=== PATIENT | female | born 1955 | race Caucasian/White ===

== ENCOUNTER 2023-02-17 16:02 | Inpatient (IN) | payer MEDICARE, OTHER ==
[2023-02-17 16:13] VITALS: BMI 34.5
[2023-02-17] MEDS ORDERED: ACETAMINOPHEN 1000 MG/100 ML BAG IVPB ONE (17:32)
[2023-02-17] MEDS ORDERED: SODIUM CHLORIDE 1,000 ML IV STA (17:32)
[2023-02-17] MEDS ORDERED: ACETAMINOPHEN INJECTION 100 ML IVPB ONE (17:38)
[2023-02-17 18:08] LABS: BASO % 0.8 % (0-2.0); EOS % 2.4 % (0-4.5); HEMATOCRIT 39.1 % (32.4-45.2); HEMOGLOBIN 13.6 GM/dL (10.7-15.3); LYMPH % 10.2 % (8-40); MCH 30.2 pg (25.7-33.7); MCHC 34.9 g/dl (32.0-36.0); MEAN CELL VOLUME 86.6 fl (80-96); MEAN PLT VOLUME 7.9 fl (7.5-11.1); MONO % 8.5 % (3.8-10.2); NEUT % 78.1 % (42.8-82.8); PLATELET COUNT 193 10^3/uL (134-434); RBC 4.51 M/mm3 (3.60-5.2); RDW 13.3 % (11.6-15.6); WHITE BLOOD COUNT 12.8 K/mm3 (4.0-10.0)
[2023-02-17 18:35] LABS: CHLORIDE 93 mmol/L (98-107); POTASSIUM 3.5 mmol/L (3.5-5.1); SODIUM 134 mmol/L (136-145)
[2023-02-17 18:37] LABS: ALBUMIN 2.7 g/dl (3.4-5.0); ANION GAP 14 MMOL/L (8-16); CALCIUM 7.9 mg/dL (8.5-10.1); CO2 28 mmol/L (21-32); GLUCOSE,RANDOM 122 mg/dL (74-106); MAGNESIUM 4.1 mg/dL (1.8-2.4)
[2023-02-17 18:40] LABS: SGOT/AST 840 U/L (15-37); SGPT/ALT 622 U/L (13-61)
[2023-02-17 18:42] LABS: TOT PROT 6.1 g/dl (6.4-8.2)
[2023-02-17 18:43] LABS: ALK PHOS 111 U/L (45-117)
[2023-02-17 18:47] LABS: BLOOD UREA NITROGEN 134.3 mg/dL (7-18); CREATININE 11.5 mg/dL (0.55-1.3)
[2023-02-17] MEDS ORDERED: SODIUM CHLORIDE 0.9% 500 ML INFUS.BAG IV ONE (18:57)
[2023-02-17 21:34] LABS: VENOUS BASE EXCESS -5.4 mmol/L (-2-2); VENOUS O2 SATURATION 46.1 % (70-80); VENOUS PCO2 41.6 mmHg (38-52); VENOUS PH 7.311 (7.310-7.410)
[2023-02-17 22:35] LABS: CHLORIDE 100 mmol/L (98-107); POTASSIUM 3.3 mmol/L (3.5-5.1); SODIUM 137 mmol/L (136-145)
[2023-02-17 22:36] LABS: CALCIUM 7.1 mg/dL (8.5-10.1)
[2023-02-17 22:37] LABS: ANION GAP 15 MMOL/L (8-16); CO2 22 mmol/L (21-32); GLUCOSE,RANDOM 102 mg/dL (74-106)
[2023-02-17 22:41] LABS: BLOOD UREA NITROGEN 122.2 mg/dL (7-18); CREATININE 10.3 mg/dL (0.55-1.3)
[2023-02-18] MEDS: SODIUM CHLORIDE 0.45% 1,000 ML IV SCH ×2 (00:48→12:36)
[2023-02-18 02:06] LABS: EPI CELLS >36 /uL (0-25.1); HYALINE CASTS 2 /uL (0-3.1); URINE APPEARANCE CLOUDY; URINE BACTERIA 766 /uL (0-1359); URINE BILIRUBIN NEGATIVE (NEGATIVE); URINE COLOR YELLOW; URINE GLUCOSE (UA) NEGATIVE (NEGATIVE); URINE KETONE NEGATIVE (NEGATIVE); URINE LEUK ESTERASE 3+ (NEGATIVE); URINE NITRITE NEGATIVE (NEGATIVE); URINE PROTEIN 2+ (NEGATIVE); URINE RBC 18 /uL (0-23.9); URINE UROBILINOGEN 0.2 mg/dL (0.2-1.0); URINE WBC 911 /uL (0-25.8)
[2023-02-18 06:28] LABS: YEAST NONE SEEN (NEGATIVE)
[2023-02-18] MEDS: HEPARIN NA (PORCINE) 5,000 UNITS/ML 1ML VIAL SQ SCH ×2 (10:23→21:09)
[2023-02-18 10:28] LABS: BASO % 0.5 % (0-2.0); EOS % 2.1 % (0-4.5); HEMATOCRIT 37.4 % (32.4-45.2); HEMOGLOBIN 12.8 GM/dL (10.7-15.3); LYMPH % 9.1 % (8-40); MCH 30.2 pg (25.7-33.7); MCHC 34.1 g/dl (32.0-36.0); MEAN CELL VOLUME 88.6 fl (80-96); MEAN PLT VOLUME 8.5 fl (7.5-11.1); MONO % 5.2 % (3.8-10.2); NEUT % 83.1 % (42.8-82.8); PLATELET COUNT 185 10^3/uL (134-434); RBC 4.22 M/mm3 (3.60-5.2); RDW 13.1 % (11.6-15.6); WHITE BLOOD COUNT 13.1 K/mm3 (4.0-10.0)
[2023-02-18 10:36] LABS: CHLORIDE 99 mmol/L (98-107); POTASSIUM 3.4 mmol/L (3.5-5.1); SODIUM 136 mmol/L (136-145)
[2023-02-18 10:42] LABS: CALCIUM 7.7 mg/dL (8.5-10.1)
[2023-02-18 10:43] LABS: ALBUMIN 2.2 g/dl (3.4-5.0); ANION GAP 17 MMOL/L (8-16); CO2 20 mmol/L (21-32); GLUCOSE,RANDOM 89 mg/dL (74-106)
[2023-02-18 10:46] LABS: SGOT/AST 616 U/L (15-37); SGPT/ALT 539 U/L (13-61)
[2023-02-18 10:48] LABS: ALK PHOS 93 U/L (45-117); BILIRUBIN,TOTAL 0.8 mg/dL (0.2-1); TOT PROT 4.9 g/dl (6.4-8.2)
[2023-02-18 11:29] LABS: BLOOD UREA NITROGEN 130.2 mg/dL (7-18)
[2023-02-18] MEDS ORDERED: SODIUM CHLORIDE 1,000 ML IV SCH (13:45)
[2023-02-18] MEDS ORDERED: POTASSIUM CHLORIDE ORAL LIQUID 20 MEQ/15 ML PO ONE (14:43)
[2023-02-18] MEDS: SODIUM CHLORIDE 1,000 ML IV SCH ×2 (15:58→23:05)
[2023-02-19] MEDS: SODIUM CHLORIDE 1,000 ML IV SCH ×3 (05:38→21:00)
[2023-02-19] MEDS: HEPARIN NA (PORCINE) 5,000 UNITS/ML 1ML VIAL SQ SCH ×2 (09:35→21:48)
[2023-02-19 10:02] LABS: INR 1.15 (0.83-1.09); PROTHROMBIN TIME (PATIENT) 13.3 SEC (9.7-13.0)
[2023-02-19 10:07] LABS: BASO % 0.4 % (0-2.0); EOS % 3.3 % (0-4.5); HEMATOCRIT 35.1 % (32.4-45.2); HEMOGLOBIN 12.4 GM/dL (10.7-15.3); MCH 30.7 pg (25.7-33.7); MCHC 35.3 g/dl (32.0-36.0); MEAN PLT VOLUME 7.7 fl (7.5-11.1); MONO % 7.2 % (3.8-10.2); NEUT % 80.1 % (42.8-82.8); PLATELET COUNT 172 10^3/uL (134-434); RBC 4.04 M/mm3 (3.60-5.2); RDW 13.2 % (11.6-15.6); WHITE BLOOD COUNT 11.5 K/mm3 (4.0-10.0)
[2023-02-19 10:18] LABS: CHLORIDE 103 mmol/L (98-107); POTASSIUM 3.8 mmol/L (3.5-5.1)
[2023-02-19 10:19] LABS: ALBUMIN 1.8 g/dl (3.4-5.0)
[2023-02-19 10:21] LABS: ALBUMIN 1.8 g/dl (3.4-5.0); BILIRUBIN,DIRECT 0.1 mg/dL (0.0-0.2); CALCIUM 7.6 mg/dL (8.5-10.1); CO2 18 mmol/L (21-32); GLUCOSE,RANDOM 79 mg/dL (74-106)
[2023-02-19 10:24] LABS: BILIRUBIN,TOTAL 0.8 mg/dL (0.2-1); SGPT/ALT 482 U/L (13-61); TOT PROT 4.6 g/dl (6.4-8.2)
[2023-02-19 10:25] LABS: SGOT/AST 452 U/L (15-37)
[2023-02-19 10:26] LABS: BILIRUBIN,TOTAL 0.8 mg/dL (0.2-1); TOT PROT 4.6 g/dl (6.4-8.2)
[2023-02-19 10:27] LABS: ALK PHOS 95 U/L (45-117); ANION GAP 16 MMOL/L (8-16); BLOOD UREA NITROGEN 127.8 mg/dL (7-18); CREATININE 10.7 mg/dL (0.55-1.3); SODIUM 137 mmol/L (136-145)
[2023-02-19 10:45] LABS: HEPATITIS B SURFACE AG MATERN NON-REACTIVE (NONREACTIVE)
[2023-02-19] MEDS ORDERED: FUROSEMIDE 40 MG/4 ML INJECTABLE VIAL IVPUSH ONE (12:00)
[2023-02-20] MEDS: SODIUM CHLORIDE 1,000 ML IV SCH ×3 (08:00→21:14)
[2023-02-20] MEDS: HEPARIN NA (PORCINE) 5,000 UNITS/ML 1ML VIAL SQ SCH ×2 (09:00→21:15)
[2023-02-20 10:51] LABS: BASO % 0.8 % (0-2.0); EOS % 3.5 % (0-4.5); HEMATOCRIT 33.5 % (32.4-45.2); HEMOGLOBIN 11.8 GM/dL (10.7-15.3); LYMPH % 8.6 % (8-40); MCHC 35.2 g/dl (32.0-36.0); MEAN PLT VOLUME 7.3 fl (7.5-11.1); MONO % 6.5 % (3.8-10.2); NEUT % 80.6 % (42.8-82.8); PLATELET COUNT 171 10^3/uL (134-434); RDW 13.1 % (11.6-15.6); WHITE BLOOD COUNT 10.8 K/mm3 (4.0-10.0)
[2023-02-20 12:00] LABS: ALBUMIN 1.8 g/dl (3.4-5.0); ALK PHOS 91 U/L (45-117); ANION GAP 16 MMOL/L (8-16); BILIRUBIN,TOTAL 0.6 mg/dL (0.2-1); BLOOD UREA NITROGEN 136.8 mg/dL (7-18); CALCIUM 7.9 mg/dL (8.5-10.1); CHLORIDE 102 mmol/L (98-107); CO2 16 mmol/L (21-32); CREATININE 10.9 mg/dL (0.55-1.3); GLUCOSE,RANDOM 157 mg/dL (74-106); POTASSIUM 3.7 mmol/L (3.5-5.1); SGOT/AST 300 U/L (15-37); SGPT/ALT 423 U/L (13-61); SODIUM 135 mmol/L (136-145); TOT PROT 4.5 g/dl (6.4-8.2)
[2023-02-20] MEDS ORDERED: POTASSIUM CHLORIDE ORAL LIQUID 20 MEQ/15 ML PO ONE (15:00)
[2023-02-20] MEDS ORDERED: FUROSEMIDE 40 MG/4 ML INJECTABLE VIAL IVPUSH ONE (15:00)
[2023-02-21] MEDS: SODIUM CHLORIDE 1,000 ML IV SCH ×2 (05:22→15:11)
[2023-02-21] MEDS: HEPARIN NA (PORCINE) 5,000 UNITS/ML 1ML VIAL SQ SCH ×2 (10:29→21:17)
[2023-02-21 10:36] LABS: BASO % 0.8 % (0-2.0); EOS % 5.3 % (0-4.5); HEMATOCRIT 34.7 % (32.4-45.2); LYMPH % 8.4 % (8-40); MCH 30.7 pg (25.7-33.7); MCHC 34.7 g/dl (32.0-36.0); MEAN CELL VOLUME 88.6 fl (80-96); MEAN PLT VOLUME 7.5 fl (7.5-11.1); MONO % 6.4 % (3.8-10.2); NEUT % 79.1 % (42.8-82.8); PLATELET COUNT 179 10^3/uL (134-434); RBC 3.92 M/mm3 (3.60-5.2); RDW 13.3 % (11.6-15.6); WHITE BLOOD COUNT 12.6 K/mm3 (4.0-10.0)
[2023-02-21 10:50] LABS: CHLORIDE 107 mmol/L (98-107); POTASSIUM 4.6 mmol/L (3.5-5.1); SODIUM 137 mmol/L (136-145)
[2023-02-21 10:59] LABS: ALBUMIN 1.8 g/dl (3.4-5.0); ANION GAP 14 MMOL/L (8-16); CO2 16 mmol/L (21-32); GLUCOSE,RANDOM 89 mg/dL (74-106)
[2023-02-21 11:02] LABS: SGOT/AST 259 U/L (15-37); SGPT/ALT 413 U/L (13-61)
[2023-02-21 11:05] LABS: ALK PHOS 91 U/L (45-117); BILIRUBIN,TOTAL 0.6 mg/dL (0.2-1); TOT PROT 4.4 g/dl (6.4-8.2)
[2023-02-21 11:34] LABS: BLOOD UREA NITROGEN 136.3 mg/dL (7-18); CREATININE 10.5 mg/dL (0.55-1.3)
[2023-02-21] MEDS ORDERED: FUROSEMIDE 40 MG/4 ML INJECTABLE VIAL IVPUSH ONE (16:07)
[2023-02-21] MEDS: ONDANSETRON 4 MG/2 ML VIAL IVPUSH PRN (21:17)
[2023-02-22 09:19] LABS: CHLORIDE 108 mmol/L (98-107); POTASSIUM 4.6 mmol/L (3.5-5.1); SODIUM 139 mmol/L (136-145)
[2023-02-22 09:21] LABS: ALBUMIN 1.9 g/dl (3.4-5.0); ANION GAP 16 MMOL/L (8-16); CALCIUM 8.4 mg/dL (8.5-10.1); CO2 15 mmol/L (21-32); GLUCOSE,RANDOM 88 mg/dL (74-106)
[2023-02-22 09:23] LABS: SGOT/AST 210 U/L (15-37); SGPT/ALT 412 U/L (13-61)
[2023-02-22 09:25] LABS: BILIRUBIN,TOTAL 0.9 mg/dL (0.2-1); TOT PROT 4.9 g/dl (6.4-8.2)
[2023-02-22 09:26] LABS: ALK PHOS 95 U/L (45-117)
[2023-02-22 09:43] LABS: BLOOD UREA NITROGEN 138.5 mg/dL (7-18); CREATININE 10.7 mg/dL (0.55-1.3)
[2023-02-22] MEDS: HEPARIN NA (PORCINE) 5,000 UNITS/ML 1ML VIAL SQ SCH ×2 (10:46→21:10)
[2023-02-22] MEDS ORDERED: FUROSEMIDE 40 MG/4 ML INJECTABLE VIAL IVPUSH ONE ×2 (11:30→20:00)
[2023-02-22 13:28] LABS: EPI CELLS 18 /uL (0-25.1); HYALINE CASTS 0 /uL (0-3.1); PH,URINE 6.5 (5.0-8.0); URINE APPEARANCE CLEAR; URINE BACTERIA 1351 /uL (0-1359); URINE BILIRUBIN NEGATIVE (NEGATIVE); URINE COLOR YELLOW; URINE GLUCOSE (UA) NEGATIVE (NEGATIVE); URINE KETONE NEGATIVE (NEGATIVE); URINE LEUK ESTERASE 1+ (NEGATIVE); URINE NITRITE NEGATIVE (NEGATIVE); URINE PROTEIN 1+ (NEGATIVE); URINE RBC 14 /uL (0-23.9); URINE UROBILINOGEN 0.2 mg/dL (0.2-1.0); URINE WBC 146 /uL (0-25.8)
[2023-02-22] MEDS ORDERED: SODIUM CHLORIDE 0.45% 1,000 ML IV SCH (13:45)
[2023-02-22] MEDS: SODIUM BICARBONATE 650 MG TABLET PO SCH ×2 (15:45→21:10)
[2023-02-22 19:07] LABS: ANTIGLOMERULAR BASEMENT MEN.AB <0.2 units (0.0-0.9)
[2023-02-23] MEDS: SODIUM BICARBONATE 650 MG TABLET PO SCH ×3 (05:21→22:05)
[2023-02-23 08:59] LABS: HEMATOCRIT 32.8 % (32.4-45.2); MCHC 33.4 g/dl (32.0-36.0); MEAN CELL VOLUME 89.8 fl (80-96); MEAN PLT VOLUME 7.5 fl (7.5-11.1); PLATELET COUNT 189 10^3/uL (134-434); RBC 3.65 M/mm3 (3.60-5.2); RDW 13.2 % (11.6-15.6)
[2023-02-23 10:17] LABS: CHLORIDE 103 mmol/L (98-107); POTASSIUM 4.3 mmol/L (3.5-5.1); SODIUM 136 mmol/L (136-145)
[2023-02-23 10:33] LABS: ALK PHOS 91 U/L (45-117); TOT PROT 4.8 g/dl (6.4-8.2)
[2023-02-23 10:35] LABS: ALBUMIN 1.9 g/dl (3.4-5.0); ANION GAP 18 MMOL/L (8-16); CALCIUM 8.3 mg/dL (8.5-10.1); CO2 16 mmol/L (21-32); GLUCOSE,RANDOM 81 mg/dL (74-106)
[2023-02-23 10:38] LABS: SGOT/AST 167 U/L (15-37)
[2023-02-23 10:39] LABS: SGPT/ALT 382 U/L (13-61)
[2023-02-23] MEDS: HEPARIN NA (PORCINE) 5,000 UNITS/ML 1ML VIAL SQ SCH ×2 (10:39→22:05)
[2023-02-23 10:40] LABS: BILIRUBIN,TOTAL 0.8 mg/dL (0.2-1)
[2023-02-23 10:48] LABS: BLOOD UREA NITROGEN 143.6 mg/dL (7-18); CREATININE 10.9 mg/dL (0.55-1.3)
[2023-02-23] MEDS: ONDANSETRON 4 MG/2 ML VIAL IVPUSH PRN (12:43)
[2023-02-23] MEDS ORDERED: FUROSEMIDE 40 MG/4 ML INJECTABLE VIAL IVPUSH ONE (13:15)
[2023-02-23 16:10] LABS: ATYPICAL pANCA <1:20 titer (Neg:<1:20); C-ANCA <1:20 titer (Neg:<1:20)
[2023-02-24] MEDS: SODIUM BICARBONATE 650 MG TABLET PO SCH ×3 (06:19→21:09)
[2023-02-24 09:17] LABS: CHLORIDE 100 mmol/L (98-107); SODIUM 134 mmol/L (136-145)
[2023-02-24 09:29] LABS: CALCIUM 8.3 mg/dL (8.5-10.1)
[2023-02-24 09:30] LABS: ANION GAP 15 MMOL/L (8-16); CO2 18 mmol/L (21-32); GLUCOSE,RANDOM 92 mg/dL (74-106)
[2023-02-24 09:33] LABS: SGOT/AST 133 U/L (15-37); SGPT/ALT 350 U/L (13-61)
[2023-02-24 09:35] LABS: BILIRUBIN,TOTAL 0.7 mg/dL (0.2-1); TOT PROT 4.9 g/dl (6.4-8.2)
[2023-02-24 09:36] LABS: ALK PHOS 92 U/L (45-117)
[2023-02-24] MEDS: HEPARIN NA (PORCINE) 5,000 UNITS/ML 1ML VIAL SQ SCH ×2 (09:38→21:09)
[2023-02-24 09:59] LABS: BLOOD UREA NITROGEN 134.1 mg/dL (7-18)
[2023-02-24] MEDS ORDERED: FUROSEMIDE 20 MG TABLET (FP) PO ONE (13:37)
[2023-02-24] MEDS ORDERED: SODIUM CHLORIDE 1,000 ML IV SCH (13:45)
[2023-02-24] MEDS ORDERED: ACETAMINOPHEN 1000 MG/100 ML BAG IVPB PRN (17:05)
[2023-02-25] MEDS: SODIUM BICARBONATE 650 MG TABLET PO SCH ×3 (05:35→21:17)
[2023-02-25 09:42] LABS: CHLORIDE 101 mmol/L (98-107); POTASSIUM 3.8 mmol/L (3.5-5.1); SODIUM 138 mmol/L (136-145)
[2023-02-25 09:51] LABS: GLUCOSE,RANDOM 86 mg/dL (74-106)
[2023-02-25 09:53] LABS: CALCIUM 7.9 mg/dL (8.5-10.1)
[2023-02-25 09:54] LABS: ANION GAP 16 MMOL/L (8-16); CO2 21 mmol/L (21-32)
[2023-02-25 09:57] LABS: SGOT/AST 100 U/L (15-37); SGPT/ALT 321 U/L (13-61)
[2023-02-25 09:58] LABS: BILIRUBIN,TOTAL 0.6 mg/dL (0.2-1)
[2023-02-25 10:00] LABS: ALK PHOS 87 U/L (45-117)
[2023-02-25 10:12] LABS: BLOOD UREA NITROGEN 139.3 mg/dL (7-18); CREATININE 10.7 mg/dL (0.55-1.3)
[2023-02-25] MEDS: HEPARIN NA (PORCINE) 5,000 UNITS/ML 1ML VIAL SQ SCH ×2 (13:43→21:17)
[2023-02-25] MEDS ORDERED: SODIUM CHLORIDE 250 ML IV PRN (14:26)
[2023-02-25] MEDS ORDERED: SODIUM CHLORIDE 0.45% 1,000 ML IV SCH (14:30)
[2023-02-25 15:52] VITALS: RESP 18
[2023-02-25] MEDS: ONDANSETRON 4 MG/2 ML VIAL IVPUSH PRN (22:55)
[2023-02-26] MEDS: SODIUM BICARBONATE 650 MG TABLET PO SCH ×3 (05:04→21:08)
[2023-02-26] MEDS: HEPARIN NA (PORCINE) 5,000 UNITS/ML 1ML VIAL SQ SCH ×2 (09:11→21:08)
[2023-02-26 09:53] LABS: HEMATOCRIT 28.6 % (32.4-45.2); HEMOGLOBIN 9.8 GM/dL (10.7-15.3); MCH 30.5 pg (25.7-33.7); MCHC 34.2 g/dl (32.0-36.0); MEAN PLT VOLUME 7.4 fl (7.5-11.1); PLATELET COUNT 218 10^3/uL (134-434); RBC 3.21 M/mm3 (3.60-5.2); RDW 12.8 % (11.6-15.6); WHITE BLOOD COUNT 9.3 K/mm3 (4.0-10.0)
[2023-02-26 10:04] LABS: POTASSIUM 3.2 mmol/L (3.5-5.1)
[2023-02-26 10:08] LABS: ALBUMIN 2.1 g/dl (3.4-5.0); CALCIUM 7.8 mg/dL (8.5-10.1)
[2023-02-26 10:11] LABS: CREATININE 7.2 mg/dL (0.55-1.3)
[2023-02-26 10:13] LABS: BILIRUBIN,TOTAL 0.8 mg/dL (0.2-1)
[2023-02-26 10:34] LABS: BLOOD UREA NITROGEN 81.3 mg/dL (7-18)
[2023-02-26] MEDS ORDERED: POTASSIUM CHLORIDE ORAL LIQUID 20 MEQ/15 ML PO ONE (10:48)
[2023-02-26] MEDS ORDERED: SODIUM CHLORIDE 250 ML IV PRN (10:48)
[2023-02-26] MEDS ORDERED: SODIUM CHLORIDE 0.45% 1,000 ML IV SCH (17:00)
[2023-02-27] MEDS: ONDANSETRON 4 MG/2 ML VIAL IVPUSH PRN ×2 (00:09→13:53)
[2023-02-27] MEDS: SODIUM BICARBONATE 650 MG TABLET PO SCH (05:38)
[2023-02-27 10:17] LABS: POTASSIUM 3.4 mmol/L (3.5-5.1)
[2023-02-27 10:21] LABS: ALBUMIN 2.1 g/dl (3.4-5.0); CALCIUM 7.9 mg/dL (8.5-10.1)
[2023-02-27] MEDS: HEPARIN NA (PORCINE) 5,000 UNITS/ML 1ML VIAL SQ SCH ×2 (10:21→21:04)
[2023-02-27 10:24] LABS: CREATININE 4.6 mg/dL (0.55-1.3)
[2023-02-27 10:26] LABS: BILIRUBIN,TOTAL 0.7 mg/dL (0.2-1)
[2023-02-27 11:02] LABS: BLOOD UREA NITROGEN 39.9 mg/dL (7-18)
[2023-02-27] MEDS ORDERED: SENNOSIDES 8.6MG TABLET (FP) PO PRN (11:41)
[2023-02-27] MEDS: LACTULOSE 20 GM/30 ML UDC (FOR ORAL USE ONLY) PO SCH (11:55)
[2023-02-27] MEDS ORDERED: POTASSIUM CHLORIDE ORAL LIQUID 20 MEQ/15 ML PO ONE (12:22)
[2023-02-28] MEDS: LACTULOSE 20 GM/30 ML UDC (FOR ORAL USE ONLY) PO SCH (09:26)
[2023-02-28] MEDS: HEPARIN NA (PORCINE) 5,000 UNITS/ML 1ML VIAL SQ SCH ×2 (09:26→22:22)
[2023-02-28 10:16] LABS: POTASSIUM 3.2 mmol/L (3.5-5.1)
[2023-02-28 10:18] LABS: ALBUMIN 2.4 g/dl (3.4-5.0); CALCIUM 8.4 mg/dL (8.5-10.1)
[2023-02-28 10:19] LABS: BLOOD UREA NITROGEN 42.3 mg/dL (7-18)
[2023-02-28 10:22] LABS: CREATININE 5.4 mg/dL (0.55-1.3)
[2023-02-28 10:23] LABS: BILIRUBIN,TOTAL 0.8 mg/dL (0.2-1); TOT PROT 5.5 g/dl (6.4-8.2)
[2023-02-28] MEDS ORDERED: POTASSIUM CHLORIDE ORAL LIQUID 20 MEQ/15 ML PO ONE (11:30)
[2023-02-28] MEDS: SODIUM CHLORIDE 0.45% 1,000 ML IV SCH (12:27)
[2023-03-01] MEDS: SODIUM CHLORIDE 0.45% 1,000 ML IV SCH ×3 (02:20→14:23)
[2023-03-01 10:22] LABS: HEMOGLOBIN 9.4 GM/dL (10.7-15.3); MCH 30.9 pg (25.7-33.7); MCHC 34.8 g/dl (32.0-36.0); MEAN CELL VOLUME 88.7 fl (80-96); MEAN PLT VOLUME 7.1 fl (7.5-11.1); PLATELET COUNT 244 10^3/uL (134-434); RBC 3.05 M/mm3 (3.60-5.2); RDW 12.9 % (11.6-15.6); WHITE BLOOD COUNT 7.3 K/mm3 (4.0-10.0)
[2023-03-01] MEDS: HEPARIN NA (PORCINE) 5,000 UNITS/ML 1ML VIAL SQ SCH ×2 (10:36→22:44)
[2023-03-01] MEDS: LACTULOSE 20 GM/30 ML UDC (FOR ORAL USE ONLY) PO SCH (10:36)
[2023-03-01 10:55] LABS: POTASSIUM 3.3 mmol/L (3.5-5.1)
[2023-03-01 11:11] LABS: CALCIUM 8.4 mg/dL (8.5-10.1)
[2023-03-01 11:12] LABS: BLOOD UREA NITROGEN 39.8 mg/dL (7-18)
[2023-03-01 11:13] LABS: ALBUMIN 2.5 g/dl (3.4-5.0)
[2023-03-01 11:15] LABS: CREATININE 5.4 mg/dL (0.55-1.3)
[2023-03-01 11:17] LABS: BILIRUBIN,TOTAL 0.9 mg/dL (0.2-1); TOT PROT 5.6 g/dl (6.4-8.2)
[2023-03-01] MEDS ORDERED: POTASSIUM CHLORIDE ORAL LIQUID 20 MEQ/15 ML PO ONE ×2 (13:31→14:30)
[2023-03-02] MEDS: SODIUM CHLORIDE 0.45% 1,000 ML IV SCH (10:55)
[2023-03-02] MEDS: HEPARIN NA (PORCINE) 5,000 UNITS/ML 1ML VIAL SQ SCH (10:56)
[2023-03-02] MEDS: LACTULOSE 20 GM/30 ML UDC (FOR ORAL USE ONLY) PO SCH (10:56)
[2023-03-02 11:12] LABS: POTASSIUM 3.6 mmol/L (3.5-5.1)
[2023-03-02 11:25] LABS: CREATININE 5.2 mg/dL (0.55-1.3)
[2023-03-02 11:26] LABS: ALBUMIN 2.5 g/dl (3.4-5.0)
[2023-03-02 11:27] LABS: BILIRUBIN,TOTAL 0.6 mg/dL (0.2-1); TOT PROT 5.8 g/dl (6.4-8.2)
[2023-03-02 11:28] LABS: CALCIUM 8.3 mg/dL (8.5-10.1)
[2023-03-02 11:29] LABS: MAGNESIUM 1.6 mg/dL (1.8-2.4); PHOSPHOROUS 4.4 mg/dL (2.5-4.9)
[2023-03-02] MEDS ORDERED: MAGNESIUM OXIDE 400 MG TABLET (FP) PO ONE (12:31)
[2023-03-02 13:34] VITALS: PULSE 68
[2023-03-02 15:33] VITALS: BP 142/64; TEMP 98.8
== END 2023-03-02 18:11 | disposition home or self-care (01) | DRG 683 ==
LOC: JER 16:02 → JERBED 21:19 → J5S 02-18 02:28
PROVIDERS: ADMIT Internal Medicine; ATTEND Internal Medicine
PROC: 06HM33Z Insertion of Infusion Device into Right Femoral Vein, Percutaneous Approach (ICD-10-PCS; principal; 2023-02-25)
PROC: B54BZZA Ultrasonography of Right Lower Extremity Veins, Guidance (ICD-10-PCS; 2023-02-25)
DX: N17.0 Acute kidney failure with tubular necrosis (principal); E87.20 Acidosis, unspecified; M62.82 Rhabdomyolysis; I10 Essential (primary) hypertension; R79.89 Other specified abnormal findings of blood chemistry; E78.5 Hyperlipidemia, unspecified; E83.41 Hypermagnesemia; E11.9 Type 2 diabetes mellitus without complications; E87.6 Hypokalemia; T46.6X5A Adverse effect of antihyperlipidemic and antiarteriosclerotic drugs, initial encounter
CPT/HCPCS: 36415; 71045-TC-FY; 74176-TC; 76705-TC; 76856-TC; 80048; 80053; 80076; 81003; 82550; 82553; 82570; 82803; 83516; 83520; 83735; 84100; 85025; 85027; 85610; 86038; 86160; 86225; 86256; 86704; 86708; 86709; 86803; 87086; 87340; 87517; 93005; 93010; 93306-TC; 97116-GP; 97161-GP; 99285-25; J1644